=== PATIENT | female | born 1995 | race Caucasian/White ===

== ENCOUNTER 2016-11-07 19:42 | Emergency (ER) | payer BC ==
[~2016-11-07] VITALS: Ht 170.2 cm; Wt 65.0 kg
[2016-11-07 19:44] VITALS: BP 120/66; PULSE 122; RESP 16; TEMP 98.2
--- NOTE | 2016-11-07 21:08 | PD ---
Physical Exam Time Seen by Provider: 21:04 Narrative 21yo F having vag bleeding x a few weeks with worsening today. +abd pain and cramping, but not much. Denies fever, vomiting, diarrhea. Denies lightheadedness, dizziness. LMP that was normal October 09. Took Plan B couple days after period and then started bleeding the next day. Patient seen in triage. VS reviewed. Awaiting bed placement. Data Data Last Documented VS Vital Signs Date Time Temp Pulse Resp B/P Pulse Ox O2 Delivery O2 Flow Rate FiO2 11/07/16 19:44 98.2 122 16 120/66 Room Air MDM Supervised Visit with MANOLO: Lanie Alva Nov 07, 2016 21:08
[2016-11-07] MEDS ORDERED: SODIUM CHLORIDE 0.9% FLUSH 10 ML FLUSH IV FLUSH PRN (22:15)
[2016-11-07 22:48] LABS: AUTOMATED NEUTROPHIL # 7.9 TH/MM3 (1.8-7.7); BASOPHIL # 0.1 TH/MM3 (0-0.2); BASOPHIL % 0.4 % (0.0-2.0); BLOOD, URINE MOD (NEG); EOSINOPHIL % 0.4 % (0.0-4.0); GLUCOSE,URINE NEG (NEG); HEMATOCRIT 35.9 % (35.0-46.0); HEMO FLAGS DIFF FINAL; KETONE, URINE 10 mg/dL (NEG); LYMPH % 24.2 % (9.0-44.0); LYMPHOCYTE # 2.8 TH/MM3 (1.0-4.8); MEAN CORPUSCULAR HEMOGLOBIN 31.6 PG (27.0-34.0); MEAN CORPUSCULAR HGB CONC 34.7 % (32.0-36.0); MONO % 6.1 % (0.0-8.0); MUCUS URINE MOD /lpf (OCC); NEUT % 68.9 % (16.0-70.0); NITRITE,URINE NEG (NEG); PH, URINE 5.5 (5.0-8.5); PLATELET COUNT 267 TH/MM3 (150-450); RED BLOOD COUNT 3.95 MIL/MM3 (4.00-5.30); RED CELL DISTRIBUTION WIDTH 12.7 % (11.6-17.2); SQUAMOUS EPITHELIAL CELL URINE 1 /hpf (0-5); URINE COLOR YELLOW (YELLW/STRAW); WHITE BLOOD COUNT 11.5 TH/MM3 (4.0-11.0)
[2016-11-07 22:57] LABS: APTT (PATIENT) 24.5 SEC (24.3-30.1); PROTHROMBIN TIME - PATIENT 10.7 SEC (9.8-11.6)
[2016-11-07 23:04] LABS: ALT (GPT) 15 U/L (10-53); ANION GAP 8 MEQ/L (5-15); AST (GOT) 8 U/L (15-37); BICARBONATE 25.5 MEQ/L (21.0-32.0); BLOOD UREA NITROGEN 11 MG/DL (7-18); CHLORIDE 107 MEQ/L (98-107); GLOMERULAR FILTRATION RATE 84 ML/MIN (>89); POTASSIUM 3.5 MEQ/L (3.5-5.1); SODIUM (NA) 140 MEQ/L (136-145)
[2016-11-07 23:06] LABS: ALKALINE PHOSPHATASE 40 U/L (45-117); TOTAL BILIRUBIN ADULT 0.5 MG/DL (0.2-1.0)
--- NOTE | 2016-11-07 23:47 | PD ---
HPI Chief Complaint: Poultry Hanger Problem/Complaint Time Seen by Provider: 22:10 Travel History International Travel<30 days: No Contact w/Intl Traveler<30days: No Traveled to known affect area: No History of Present Illness HPI 21-year-old female here for evaluation of heavy vaginal bleeding and suprapubic/ lower abdominal cramping. Patient reports that her LMP was 10/09/16. She took Plan B a few days after that. She states that she has had vaginal bleeding every day since then with intermittent lower abdominal cramping. The reason she came in today is because for about 6 hours she had even heavier vaginal bleeding with more intense cramping. At time of my assessment the patient states that her bleeding has slowed down and she no longer has abdominal pain or cramping. She reports that she is currently on control and started on an about 2 weeks ago by her ophthalmic photographer. She is sexually active with one partner and believes she is in a monogamous relationship for the past 1.5 years. No vaginal discharge other than bleeding. No fevers or chills. Patient reports that 2 months ago she had a planned . [facility] Past Medical History Medical History: Denies Significant Hx Tetanus Vaccination: > 5 Years Influenza Vaccination: No ?: Not Past Surgical History Surgical History: No Previous Surgery Social History Alcohol Use: Yes Tobacco Use: Yes Substance Use: Yes ( ) Allergies-Medications (Allergen,Severity, Reaction): Coded Allergies: No Known Allergies (Unverified , 11/07/16) Review of Systems Except as stated in HPI: all other systems reviewed are Neg Physical Exam Narrative GENERAL: Well-developed, well-nourished, comfortable, no apparent distress. SKIN: Focused skin assessment warm/dry. No pallor. HEAD: Atraumatic. Normocephalic. EYES: Pupils equal and round. No scleral icterus. No injection or drainage. ENT: Mucous membranes pink and moist. NECK: Trachea midline. No JVD. CARDIOVASCULAR: Regular rate and rhythm. RESPIRATORY: No accessory muscle use. Clear to auscultation. Breath sounds equal bilaterally. GASTROINTESTINAL: Abdomen soft, non-tender, nondistended. EELER: Exam performed in the presence of female nurse. Normal external genitalia. Small amount of blood in the vaginal vault coming from the cervical os. No cervical lacerations. Normal appearing cervix. No vaginal lacerations or masses. No CMT. No adnexal masses or tenderness. MUSCULOSKELETAL: No obvious deformities. No clubbing. No cyanosis. No edema. NEUROLOGICAL: Awake and alert. No obvious cranial nerve deficits. Motor grossly within normal limits. Normal speech. PSYCHIATRIC: Appropriate mood and affect; insight and judgment normal. Data Data Last Documented VS Vital Signs Date Time Temp Pulse Resp B/P Pulse Ox O2 Delivery O2 Flow Rate FiO2 11/07/16 19:44 98.2 122 16 120/66 Room Air Orders Complete Blood Count With Diff (11/07/16 22:15) Comprehensive Metabolic Panel (11/07/16 22:15) Gc And Chlamydia Pcr (11/07/16 22:15) Wet Prep Profile (11/07/16 22:15) Ua Includes Microscopic (11/07/16 22:15) Ed Urine Pregnancytest Poc (11/07/16 22:15) Prothrombin Time / Inr (Pt) (11/07/16 22:15) Act Partial Throm Time (Ptt) (11/07/16 22:15) Iv Access Insert/Monitor (11/07/16 22:15) Ecg Monitoring (11/07/16 22:15) Oximetry (11/07/16 22:15) Sodium Chloride 0.9% Flush (Ns Flush) (11/07/16 22:15) Labs Laboratory Tests Test 11/07/16 11/07/16 22:30 22:45 White Blood Count 11.5 TH/MM3 Red Blood Count 3.95 MIL/MM3 Hemoglobin 12.5 GM/DL Hematocrit 35.9 % Mean Corpuscular Volume 91.0 FL Mean Corpuscular Hemoglobin 31.6 PG Mean Corpuscular Hemoglobin 34.7 % Concent Red Cell Distribution Width 12.7 % Platelet Count 267 TH/MM3 Mean Platelet Volume 8.6 FL Neutrophils (%) (Auto) 68.9 % Lymphocytes (%) (Auto) 24.2 % Monocytes (%) (Auto) 6.1 % Eosinophils (%) (Auto) 0.4 % Basophils (%) (Auto) 0.4 % Neutrophils # (Auto) 7.9 TH/MM3 Lymphocytes # (Auto) 2.8 TH/MM3 Monocytes # (Auto) 0.7 TH/MM3 Eosinophils # (Auto) 0.0 TH/MM3 Basophils # (Auto) 0.1 TH/MM3 CBC Comment DIFF FINAL Differential Comment Prothrombin Time 10.7 SEC Prothromb Time International 1.0 RATIO Ratio Activated Partial 24.5 SEC Thromboplast Time Urine Color YELLOW Urine Turbidity CLEAR Urine pH 5.5 Urine Specific [place] 1.046 Urine Protein TRACE mg/dL Urine Glucose (UA) NEG mg/dL Urine Ketones 10 mg/dL Urine Occult Blood MOD Urine Nitrite NEG Urine Bilirubin NEG Urine Urobilinogen LESS THAN 2.0 MG/DL Urine Leukocyte Esterase NEG Urine RBC 78 /hpf Urine WBC 2 /hpf Urine Squamous Epithelial 1 /hpf Cells Urine Amorphous Sediment RARE Urine Mucus MOD /lpf Microscopic Urinalysis Comment Sodium Level 140 MEQ/L Potassium Level 3.5 MEQ/L Chloride Level 107 MEQ/L Carbon Dioxide Level 25.5 MEQ/L Anion Gap 8 MEQ/L Blood Urea Nitrogen 11 MG/DL Creatinine 0.85 MG/DL Estimat Glomerular Filtration 84 ML/MIN Rate Random Glucose 154 MG/DL Calcium Level 8.6 MG/DL Total Bilirubin 0.5 MG/DL Aspartate Amino Transf 8 U/L (AST/SGOT) Alanine Aminotransferase 15 U/L (ALT/SGPT) Alkaline Phosphatase 40 U/L Total Protein 7.8 GM/DL Albumin 4.2 GM/DL Clue Cells (Wet Prep) NONE SEEN Vaginal Trichomonas (Wet Prep) NONE SEEN Vaginal Yeast (Wet Prep) NONE SEEN MDM Medical Decision Making Medical Screen Exam Complete: Yes Emergency Medical Condition: Yes Differential Diagnosis Abnormal uterine bleeding, menorrhagia, ectopic , , spontaneous , anemia, uterine fibroids Narrative Course Vital signs reviewed. Heart rate in triage is 122. Repeat heart rate was 83 without any intervention. CBC shows WBC 11.5, hemoglobin 12.5, hematocrit 35.9, platelets 267. CMP is essentially unremarkable. UA shows moderate occult blood, 78 rbc's, not suggestive of UTI. Wet prep is negative for use, negative for clue cells, negative for Trichomonas. Urine test is negative. Patient made aware of all findings. She is likely suffering from abnormal uterine bleeding. She was reassured that her H&H is normal. She is currently on control and I told her to continue taking this medication and follow- up with her ophthalmic photographer this week. She was informed on when to return to the emergency department patient verbalizes understanding and agreement with plan. Diagnosis Primary Impression: Abnormal uterine bleeding Referrals: Elevating Grader Operator 3 days Additional Instructions: Follow-up with your ophthalmic photographer this week. Return to the emergency department for worsening symptoms or any other concerns as discussed. Disposition: 01 DISCHARGE HOME Condition: Colt Rodriguez MD Nov 07, 2016 23:46
[2016-11-07 23:52] VITALS: PULSE 83
[2016-11-08 01:12] LABS: CHLAMYDIA PCR NOT DETECTED (NOT DETECT); NEISSERIA PCR NOT DETECTED (NOT DETECT)
== END 2016-11-08 00:06 | disposition home or self-care (01) ==
LOC: NEPD 19:42
DX: N93.9 Abnormal uterine and vaginal bleeding, unspecified (principal); R10.30 Lower abdominal pain, unspecified; Z72.0 Tobacco use
CPT/HCPCS: 80053; 81001; 84703; 85025; 85610; 85730; 87210; 87491; 87591; 99283